=== PATIENT | male | born 1970 | race Caucasian/White ===

== ENCOUNTER 2016-10-28 01:03 | Emergency (ER) | payer BC ==
[2016-10-28] MEDS ORDERED: NO MEDICATIONS (01:19)
== END 2016-10-28 02:29 | disposition home or self-care (01) ==
LOC: SED 01:03
DX: H10.9 Unspecified conjunctivitis (principal); F17.200 Nicotine dependence, unspecified, uncomplicated
CPT/HCPCS: 99283